=== PATIENT | male | born 1975 | race African-American/Black ===

== ENCOUNTER 2017-12-24 17:17 | Outpatient (RCR) | payer OTHER | END 2017-12-26 | LOC: OT 17:17 | PROVIDERS: ATTEND Orthopaedic Surgery | DX: S62.336A Displaced fracture of neck of fifth metacarpal bone, right hand, initial encounter for closed fracture (principal) ==

== ENCOUNTER 2018-01-24 08:00 | Outpatient (RCR) | payer OTHER | END 2018-01-25 | LOC: OT 08:00 | PROVIDERS: ATTEND Orthopaedic Surgery | DX: S62.336D Displaced fracture of neck of fifth metacarpal bone, right hand, subsequent encounter for fracture with routine healing (principal) | CPT/HCPCS: 97139 ==

== ENCOUNTER → 2018-02-25 | Outpatient (RCR) | payer OTHER | LOC: OT 01-30 09:12 | PROVIDERS: ATTEND Orthopaedic Surgery | DX: S62.336A Displaced fracture of neck of fifth metacarpal bone, right hand, initial encounter for closed fracture (principal); M25.641 Stiffness of right hand, not elsewhere classified ==

== ENCOUNTER 2018-03-27 10:00 | Outpatient (RCR) | payer OTHER | END 2018-03-28 | LOC: OT 10:00 | PROVIDERS: ATTEND Orthopaedic Surgery | DX: S62.336D Displaced fracture of neck of fifth metacarpal bone, right hand, subsequent encounter for fracture with routine healing (principal); M25.541 Pain in joints of right hand; M25.641 Stiffness of right hand, not elsewhere classified; M25.631 Stiffness of right wrist, not elsewhere classified | CPT/HCPCS: 97139 ==

== ENCOUNTER 2022-04-06 07:37 | Emergency (ER) | payer OTHER ==
[~2022-04-06] VITALS: Ht 170.2 cm; Wt 76.2 kg
[2022-04-06] MEDS ORDERED: ALBUTEROL SULFATE HFA 8GM INHALATION AEROSOL INH PRN (08:00)
[2022-04-06] MEDS ORDERED: DEXAMETHASONE SOD PHOS 10 MG/1 ML VIAL IV ONE (08:00)
[2022-04-06 08:04] LABS: BASOPHILS # (AUTO) 0.1 (0.0-0.1); BASOPHILS % 1.2 % (0.0-1.0); EOSINOPHILS % 15.9 % (0.0-6.0); HEMATOCRIT 42.7 % (38.2-49.6); HEMOGLOBIN 13.3 g/dL (14.0-18.0); LYMPHOCYTES # (AUTO) 1.2 (1.0-3.2); LYMPHOCYTES % 19.4 % (18.0-39.1); MEAN CORPUSCULAR HGB CONC 31.1 g/dL (31-35); MEAN CORPUSCULAR VOLUME 89.9 fL (81-99); MONOCYTES # (AUTO) 0.4 (0.2-0.8); MONOCYTES % 7.3 % (4.4-11.3); NEUTROPHILS # (AUTO) 3.4 (2.1-6.9); PLATELET COUNT 286 x10e3/uL (140-360); RED BLOOD COUNT 4.75 x10e6/uL (4.3-5.7); RED CELL DISTRIBUTION WIDTH 11.5 % (11.7-14.4)
[2022-04-06] MEDS ORDERED: ALBUTEROL/IPRATROPIUM 3 ML NEB NEB ONE (08:15)
[2022-04-06 08:25] LABS: ALBUMIN 3.4 g/dL (3.5-5.0); ALBUMIN/GLOBULIN RATIO 0.9 (0.8-2.0); ANION GAP 10.4 mmol/L (8-16); CREATININE, SERUM 1.26 mg/dL (0.72-1.25); POTASSIUM 4.4 mmol/L (3.5-5.1)
[2022-04-06] MEDS ORDERED: ALBUTEROL/IPRATROPIUM 3 ML NEB ONE (08:27)
[2022-04-06] MEDS ORDERED: PROVENTIL HFA6.7 GM INH (09:07)
[2022-04-06 09:43] VITALS: BP 140/83
== END 2022-04-06 08:30 | disposition home or self-care (01) ==
LOC: ER 07:43
DX: R05.9 Cough, unspecified (principal); J45.909 Unspecified asthma, uncomplicated; E11.65 Type 2 diabetes mellitus with hyperglycemia; Z20.822 Contact with and (suspected) exposure to COVID-19
CPT/HCPCS: 36415; 71045; 80053; 83880; 85025; 93005; 94640; 94799; 99284; J1100; U0002